=== PATIENT | female | born 1935 | race Caucasian/White ===

== ENCOUNTER 2017-11-24 03:58 | Observation (INO) | payer OTHER ==
[2017-11-24 04:09] VITALS: BMI 29.2
--- NOTE | 2017-11-24 05:28 | PDOC ---
History of Present Illness - History of Present Illness Initial Comments: 11/24/17 05:59 The patient is a 82 year old female, with a significant past medical history of hyperlipidemia, hypertension, diabetes, who presents to the emergency department with dizziness this morning. The patient states she woke up feeling dizzy and woke her daughter. Secondarily, she reports having neck pain on the left. She denies LOC or falls. She denies chest pain, shortness of breath, headache. She denies fever, chills, nausea, vomit, diarrhea and constipation. She denies dysuria, frequency, urgency and hematuria. Allergies: NKDA PCP: Dr. Shukla? <Renay Aguilar - Last Filed: 11/24/17 05:59> <Jossie Wilhelm - Last Filed: 11/29/17 20:50> - General Chief Complaint: Blood Pressure Problem Stated Complaint: HYPERTENSIVE CRISIS Time Seen by Provider: 11/24/17 04:51 Past History <Renay Aguilar - Last Filed: 11/24/17 05:59> - Past Medical History COPD: No Diabetes: Yes (2) HTN: Yes Hypercholesterolemia: Yes - Suicide/Smoking/Psychosocial Hx Smoking History: Never smoked Have you smoked in the past 12 months: No Information on smoking cessation initiated: No Hx Alcohol Use: No Drug/Substance Use Hx: No <Josise Wilhelm - Last Filed: 11/29/17 20:50> - Past Medical History Allergies/Adverse Reactions: Allergies Allergy/AdvReac Type Severity Reaction Status Date / Time No Known Allergies Allergy Verified 11/24/17 04:54 Home Medications: Ambulatory Orders Amlodipine Besylate [Norvasc -] 10 mg PO DAILY 11/24/17 Aspirin 81 mg PO DAILY 11/24/17 Furosemide [Lasix -] 20 mg PO BID 11/24/17 Losartan Potassium 100 mg PO DAILY 11/24/17 Memantine HCl [Namenda -] 10 mg PO BID 11/24/17 Sitagliptin Phosphate [Januvia] 100 mg PO DAILY 11/24/17 Review of Systems - Review of Systems Able to Perform ROS?: Yes Comments:: 11/24/17 06:02 GENERAL/CONSTITUTIONAL: No fever or chills. No weakness. HEAD, EYES, EARS, NOSE AND THROAT: No change in vision. No ear pain or discharge. No sore throat. CARDIOVASCULAR: No chest pain or shortness of breath. RESPIRATORY: No cough, wheezing, or hemoptysis. GASTROINTESTINAL: No nausea, vomiting, diarrhea or constipation. GENITOURINARY: No dysuria, frequency, or change in urination. MUSCULOSKELETAL: (+) neck pain. No joint or muscle swelling. No back pain. SKIN: No rash NEUROLOGIC: (+) dizziness. No headache, loss of consciousness, or change in strength/sensation. ENDOCRINE: No increased thirst. No abnormal weight change. HEMATOLOGIC/LYMPHATIC: No anemia, easy bleeding, or history of blood clots. ALLERGIC/IMMUNOLOGIC: No hives or skin allergy. <Renay Aguilar - Last Filed: 11/24/17 05:59> *Physical Exam - Vital Signs Last Vital Signs Temp Pulse Resp BP Pulse Ox 97.1 F L 109 H 18 168/74 96 11/24/17 04:07 11/24/17 04:07 11/24/17 04:07 11/24/17 04:07 11/24/17 04:07 - Physical Exam Comments: 11/24/17 06:03 GENERAL: Awake, alert, and fully oriented, in no acute distress HEAD: No signs of trauma EYES: PERRLA, EOMI, sclera anicteric, conjunctiva clear ENT: Auricles normal inspection, hearing grossly normal, nares patent, oropharynx clear without exudates. Moist mucosa NECK: Normal ROM, supple, no lymphadenopathy, JVD, or masses LUNGS: Breath sounds equal, clear to auscultation bilaterally. No wheezes, and no crackles HEART: (+) tachycardic rate and normal rhythm, normal S1 and S2, no murmurs, rubs or gallops ABDOMEN: Soft, nontender, normoactive bowel sounds. No guarding, no rebound. No masses EXTREMITIES: Normal range of motion, no edema. No clubbing or cyanosis. No cords, erythema, or tenderness NEUROLOGICAL: Cranial nerves II through XII grossly intact. Normal speech, normal gait SKIN: (+) Warm to touch, Dry, normal turgor, no rashes or lesions noted. <Renay Aguilar - Last Filed: 11/24/17 05:59> - Vital Signs Last Vital Signs Temp Pulse Resp BP Pulse Ox 97.1 F L 109 H 18 168/74 96 11/24/17 04:07 11/24/17 04:07 11/24/17 04:07 11/24/17 04:07 11/24/17 04:07 <Jossie Wilhelm - Last Filed: 11/29/17 20:50> ED Treatment Course - LABORATORY CBC & Chemistry Diagram: 11/24/17 06:00 11/24/17 06:00 <Jossie Wilhelm - Last Filed: 11/29/17 20:50> Medical Decision Making - Medical Decision Making 11/24/17 06:38 Pt comes with elevated BP and dizziness complaint. No headache and no body aches and no fever or chills. She has slight neck pain, but she is neurologicaly intact and she is moving about easily. 11/24/17 06:41 Pt was given a dose of metorpolol 5mg IVPB in the ER, as she is tachycardic and HTN. 11/24/17 06:42 Pt has CXR and CT head and labs pending. Pt will be signed out to the day ER docs. 11/24/17 07:00 Patient Name: LALITA PATE THIS IS A PRELIMINARY REPORT FROM [facility] AUTHORIZATION NURSE DATE OF SERVICE: 2017-11-24 06:17:40 IMAGES: [id number] EXAM: CT HEAD without contrast HISTORY: Dizziness and hypertension COMPARISON: None. FINDINGS: The ventricular system is midline and nondilated. There is mild cortical atrophy and small vessel ischemic disease. There is no bleed, mass, extra-axial fluid collection or mass effect. No skull fracture or skull lesion is identified. The visualized paranasal sinuses and mastoid air cells are clear. IMPRESSION: No acute pathology. 11/29/17 20:50 Pt admitted for dizziness and uncontrolled BP <Jossie Wilhelm - Last Filed: 11/29/17 20:50> *DC/Admit/Observation/Transfer - Attestations Scribe Attestion: 11/24/17 06:04 Documentation prepared by Renay Aguilar, acting as medical sales associate for Jsosie Wilhelm MD <Renay Aguilar - Last Filed: 11/24/17 05:59> <Jossie Wilhelm - Last Filed: 11/29/17 20:50> Diagnosis at time of Disposition: Ataxia - Discharge Dispostion Disposition: HOME Condition at time of disposition: Fair
[2017-11-24] MEDS ORDERED: METOPROLOL TARTRATE 5 MG/5 ML VIAL IVPUSH ONE (05:49)
[2017-11-24 06:08] LABS: BASO % 0.7 % (0-2.0); EOS % 0.3 % (0-4.5); HEMATOCRIT 40.8 % (32.4-45.2); HEMOGLOBIN 13.3 GM/dL (10.7-15.3); LYMPH % 13.1 % (8-40); MCH 27.4 pg (25.7-33.7); MCHC 32.6 g/dl (32.0-36.0); MEAN CELL VOLUME 83.8 fl (80-96); MEAN PLT VOLUME 10.1 fl (7.5-11.1); NEUT % 81.9 % (42.8-82.8); PLATELET COUNT 204 K/MM3 (134-434); RBC 4.86 M/mm3 (3.60-5.2); RDW 15.4 % (11.6-15.6); WHITE BLOOD COUNT 7.9 K/mm3 (4.0-10.0)
[2017-11-24] MEDS ORDERED: METOPROLOL TARTRATE 5 MG/5 ML VIAL ONE (06:14)
[2017-11-24 06:21] LABS: INR 0.96 (0.82-1.09); PROTHROMBIN TIME (PATIENT) 10.8 SEC (9.98-11.88)
[2017-11-24 06:47] LABS: ANION GAP 11 (8-16); BILIRUBIN,TOTAL 0.2 mg/dL (0.2-1.0); BLOOD UREA NITROGEN 21 mg/dL (7-18); CALCIUM 9.4 mg/dL (8.5-10.1); CHLORIDE 103 mmol/L (98-107); CO2 26 mmol/L (21-32); CREATININE 0.9 mg/dL (0.55-1.02); GLUCOSE,RANDOM 139 mg/dL (74-106); POTASSIUM 4.5 mmol/L (3.5-5.1); SGOT/AST 15 U/L (15-37); SGPT/ALT 17 U/L (12-78); SODIUM 140 mmol/L (136-145); TOT PROT 7.7 g/dl (6.4-8.2)
[2017-11-24 06:49] LABS: ALK PHOS 68 U/L (45-117)
--- NOTE | 2017-11-24 08:28 | PDOC ---
*Physical Exam - Vital Signs Last Vital Signs Temp Pulse Resp BP Pulse Ox 98.1 F 98 H 16 147/77 98 11/24/17 06:46 11/24/17 06:46 11/24/17 06:46 11/24/17 06:46 11/24/17 06:46 ED Treatment Course - LABORATORY CBC & Chemistry Diagram: 11/24/17 06:00 11/24/17 06:00 - ADDITIONAL ORDERS Additional order review: Laboratory Results 11/24/17 11/24/17 11/24/17 06:02 06:00 06:00 PT with INR 10.80 INR 0.96 Sodium 140 Potassium 4.5 Chloride 103 Carbon Dioxide 26 Anion Gap 11 BUN 21 H Creatinine 0.9 Creat Clearance w eGFR > 60 POC Glucometer 140.93081 Random Glucose 139 H Calcium 9.4 Total Bilirubin 0.2 AST 15 ALT 17 Alkaline Phosphatase 68 Creatine Kinase 137 Troponin I 0.02 Total Protein 7.7 Albumin 4.0 11/24/17 11/24/17 06:02 06:00 RBC 4.86 MCV 83.8 MCHC 32.6 RDW 15.4 MPV 10.1 Neutrophils % 81.9 Lymphocytes % 13.1 Monocytes % 4.0 Eosinophils % 0.3 Basophils % 0.7 POC Glucometer 140.13166 - Medications Given in the ED: ED Medications Discontinued Medications Generic Name Dose Route Start Last Admin Trade Name Bipinq PRN Reason Stop Dose Admin Metoprolol Tartrate 5 mg 11/24/17 05:49 11/24/17 06:46 Lopressor Injection - IVPUSH 11/24/17 05:50 5 mg ONCE ONE Administration Oxycodone/Acetaminophen 2 combo 11/24/17 05:29 11/24/17 06:13 Percocet 5/325 - PO 11/24/17 05:30 Not Given ONCE ONE Medical Decision Making - Medical Decision Making 11/24/17 08:08 Received signout on this 82-year-old female with history of hypertension who presented with difficulty ambulating since last night. BP managed with IV toprol , pt sxs unchanged. Per pt and daughter, pt keeps falling to her left when walking, this has been ongoing for a few days but worse since last night. Labs and CT head so far unremarkable. Given age and elevated BP, cerebellar pathology is of concern. Discussed with patient, would admit for further imaging and neuro evaluation. PMD at [facility]. 11/24/17 10:05 Accepted for obs stroke by Dr. Garcia, will consult Dr. Delacruz of neurology. *DC/Admit/Observation/Transfer Diagnosis at time of Disposition: Ataxia - Discharge Dispostion Condition at time of disposition: Fair Admit: Yes - Referrals - Patient Instructions - Post Discharge Activity NIH Stroke Scale - Last Known Well Date/Time & Onset Date Last Known Well: 11/22/17 - Initial Evaluation Level of consciousness: Alert Ask patient the month and their age: Answers both correctly Ask patient to open & close eyes; make fist and let go: Obeys both correctly Best gaze (horizontal eye movement): Normal Visual field testing: No visual field loss Facial paresis (Show teeth/raise eyebrows/close eyes tight): Normal symmetrical movement Motor Function: Left Arm: Normal Motor Function: Right Arm: Normal (extends arm 90 (or 45) degrees for 10 seconds without drift Motor Function: Left Leg: Normal (extends leg 30 degrees for 5 seconds without drift) Motor Function: Right Leg: Normal (extends leg 30 degrees for 5 seconds without drift) Limb Ataxia: No ataxia Sensory(Use pinprick test arms,legs,trunk,face/side to side): Normal Best language (Describe picture, name items, read sentences): No Aphasia Dysarthria (read several words): Normal articulation Extinction and Inattention: No abnormality - Total Score NIH Stroke Scale Score: 0 tPA Exclusion checklist 3-4.5h - Ineligibility reason(s) Reasons No tPA given: Outside of window - delayed arrival
--- NOTE | 2017-11-24 12:21 | EKG ---
Test Reason : Blood Pressure : / mmHG Vent. Rate : 100 BPM Atrial Rate : 100 BPM P-R Int : 176 ms QRS Dur : 084 ms QT Int : 352 ms P-R-T Axes : 057 019 061 degrees QTc Int : 454 ms NORMAL SINUS RHYTHM NONSPECIFIC T WAVE ABNORMALITY ABNORMAL ECG NO PREVIOUS ECGS AVAILABLE Confirmed by SELENA MONZON MD ([id number]) on 11/24/2017 12:21:31 PM Referred By: Confirmed By:SELENA MONZON MD
--- NOTE | 2017-11-24 12:54 | HP ---
Admitting History and Physical - Primary Care Physician PCP: Pete Garcia - Admission Chief Complaint: dizzy History of Present Illness: The patient is a 82 year old female, with a significant past medical history of hyperlipidemia, hypertension, diabetes, who presents to the emergency department with dizziness this morning. The patient states she woke up feeling dizzy and woke her daughter. Secondarily, she reports having neck pain on the left. She denies LOC or falls. - Past Medical History Cardiovascular: Yes: HTN, Hyperlipdemia Endocrine: Yes: Diabetes Mellitus - Smoking History Smoking history: Never smoked Have you smoked in the past 12 months: No - Alcohol/Substance Use Hx Alcohol Use: No Home Medications - Allergies Allergies/Adverse Reactions: Allergies Allergy/AdvReac Type Severity Reaction Status Date / Time No Known Allergies Allergy Verified 11/24/17 04:54 - Home Medications Home Medications: Ambulatory Orders Amlodipine Besylate [Norvasc -] 10 mg PO DAILY 11/24/17 Aspirin 81 mg PO DAILY 11/24/17 Furosemide [Lasix -] 20 mg PO BID 11/24/17 Losartan Potassium 100 mg PO DAILY 11/24/17 Memantine HCl [Namenda -] 10 mg PO BID 11/24/17 Sitagliptin Phosphate [Januvia] 100 mg PO DAILY 11/24/17 Physical Examination Vital Signs: Vital Signs Temperature 98.1 F 11/24/17 06:46 Pulse Rate 98 H 11/24/17 06:46 Respiratory Rate 16 11/24/17 06:46 Blood Pressure 147/77 11/24/17 06:46 O2 Sat by Pulse Oximetry (%) 98 11/24/17 06:46 Constitutional: Yes: No Distress HENT: Yes: Atraumatic Neck: Yes: Supple Cardiovascular: Yes: Regular Rate and Rhythm Respiratory: Yes: CTA Bilaterally Gastrointestinal: Yes: Normal Bowel Sounds Extremities: Yes: WNL Edema: No Peripheral Pulses WNL: Yes Neurological: Yes: Alert, Oriented Labs: CBC, BMP 11/24/17 06:00 11/24/17 06:00 Problem List - Problems (1) HTN (hypertension) Assessment/Plan: continue home meds Code(s): I10 - ESSENTIAL (PRIMARY) HYPERTENSION (2) HLD (hyperlipidemia) Assessment/Plan: on meds Code(s): E78.5 - HYPERLIPIDEMIA, UNSPECIFIED (3) Diabetes Assessment/Plan: on oral hypoglycemics check bgms Code(s): E11.9 - TYPE 2 DIABETES MELLITUS WITHOUT COMPLICATIONS (4) Dizziness Assessment/Plan: check bp i think she has benign positional vertigo will give a trial of meclizine Code(s): R42 - DIZZINESS AND GIDDINESS Assessment/Plan Laboratory Tests 11/24/17 11/24/17 11/24/17 06:00 06:00 06:00 WBC 7.9 RBC 4.86 Hgb 13.3 Hct 40.8 MCV 83.8 MCH 27.4 MCHC 32.6 RDW 15.4 Plt Count 204 MPV 10.1 Neutrophils % 81.9 Lymphocytes % 13.1 Monocytes % 4.0 Eosinophils % 0.3 Basophils % 0.7 PT with INR 10.80 INR 0.96 Sodium 140 Potassium 4.5 Chloride 103 Carbon Dioxide 26 Anion Gap 11 BUN 21 H Creatinine 0.9 Creat Clearance w eGFR > 60 POC Glucometer Random Glucose 139 H Calcium 9.4 Total Bilirubin 0.2 AST 15 ALT 17 Alkaline Phosphatase 68 Creatine Kinase 137 Troponin I 0.02 Total Protein 7.7 Albumin 4.0 11/24/17 06:02 WBC RBC Hgb Hct MCV MCH MCHC RDW Plt Count MPV Neutrophils % Lymphocytes % Monocytes % Eosinophils % Basophils % PT with INR INR Sodium Potassium Chloride Carbon Dioxide Anion Gap BUN Creatinine Creat Clearance w eGFR POC Glucometer 140.03151 Random Glucose Calcium Total Bilirubin AST ALT Alkaline Phosphatase Creatine Kinase Troponin I Total Protein Albumin Active Medications Generic Name Dose Route Start Last Admin Trade Name Bipinq PRN Reason Stop Dose Admin Acetaminophen 650 mg 11/24/17 21:56 11/24/17 22:04 Tylenol - PO 650 mg Q6H PRN Administration FEVER OR PAIN Amlodipine Besylate 10 mg 11/25/17 10:00 11/25/17 10:13 Norvasc - PO 10 mg DAILY GIANCARLO Administration Aspirin 81 mg 11/25/17 10:00 11/25/17 10:13 Asa - PO 81 mg DAILY GIANCARLO Administration Furosemide 20 mg 11/25/17 06:00 11/25/17 14:07 Lasix - PO 20 mg BIDLASIX GIANCARLO Administration Losartan Potassium 100 mg 11/25/17 10:00 11/25/17 10:13 Losartan Potassium PO 100 mg DAILY GIANCARLO Administration Memantine 10 mg 11/24/17 22:00 11/25/17 10:13 Namenda - PO 10 mg BID GIANCARLO Administration Sitagliptin Phosphate 100 mg 11/25/17 07:00 11/25/17 08:15 Januvia - PO 100 mg DAILY@0700 GIANCARLO Administration
--- NOTE | 2017-11-24 15:28 | CON.CARD ---
Consult Consult Specialty:: Cardiology Referred by:: ER Reason for Consultation:: dizziness htn - History of Present Illness Chief Complaint: dizziness History of Present Illness: She is an 82 year old female history of hyperlipidemia, hypertension, diabetes, who presents with dizziness since this morning. The patient states she woke up feeling dizzy and woke her daughter. Secondarily, she reports having neck pain on the left. She denies LOC or falls. No palpitations, LOC, chest pain or headache. Her dizziness is described as lightheadedness without room spinning. - History Source History Provided By: Patient, Medical Record Limitations to Obtaining History: No Limitations - Alcohol/Substance Use Hx Alcohol Use: No - Smoking History Smoking history: Never smoked Have you smoked in the past 12 months: No Home Medications - Allergies Allergies/Adverse Reactions: Allergies Allergy/AdvReac Type Severity Reaction Status Date / Time No Known Allergies Allergy Verified 11/24/17 04:54 - Home Medications Home Medications: Ambulatory Orders Unobtainable [Unobtainable] 11/24/17 Vital Signs: Vital Signs Temperature 98.1 F 11/24/17 06:46 Pulse Rate 97 H 11/24/17 13:00 Respiratory Rate 20 11/24/17 13:00 Blood Pressure 148/76 11/24/17 13:00 O2 Sat by Pulse Oximetry (%) 97 11/24/17 13:00 Constitutional: Yes: Well Nourished, No Distress Eyes: Yes: Conjunctiva Clear, EOM Intact HENT: Yes: Atraumatic, Normocephalic Neck: Yes: Supple, Trachea Midline Respiratory: Yes: Regular, CTA Bilaterally Gastrointestinal: Yes: Normal Bowel Sounds, Soft Cardiovascular: Yes: Regular Rate and Rhythm JVD: No Carotid Bruit: No PMI: Non-Displaced Heart Sounds: Yes: S1, S2 Edema: No Peripheral Pulses WNL: Yes - Other Data Labs, Other Data: CBC, BMP 11/24/17 06:00 11/24/17 06:00 INR, PTT INR 0.96 (0.82-1.09) 11/24/17 06:00 Troponin, BNP 11/24/17 06:00 Troponin I 0.02 Troponin, BNP 11/24/17 06:00 Troponin I 0.02 Imaging - Results Cat Scan: Report Reviewed (no gross abnormalities) EKG: Report Reviewed (nsr nssttw changes.) Problem List - Problems (1) Dizziness Assessment/Plan: She is nonpostural, and I do not believe that her dizziness is due to cardiac cause at this time. Would consider neurologic evaluation given her diabetes, and MRI. Echo ordered. Continue home BP medications. Code(s): R42 - DIZZINESS AND GIDDINESS
[2017-11-24] MEDS ORDERED: amLODIPine BESYLATE 5 MG TABLET (FP) PO SCH (18:00)
[2017-11-24] MEDS ORDERED: amLODIPine BESYLATE 5 MG TABLET (FP) ONE ×2 (18:29→18:32)
[2017-11-24] MEDS ORDERED: ACETAMINOPHEN 325 MG TABLET (FP) PO PRN (21:56)
[2017-11-24] MEDS ORDERED: MECLIZINE HCL 25 MG TABLET (FP) PO PRN (21:56)
[2017-11-24] MEDS: MEMANTINE HCL 10 MG TABLET (FP) PO SCH (22:29)
[2017-11-25] MEDS ORDERED: FUROSEMIDE 40 MG TABLET (FP) ONE (08:10)
[2017-11-25] MEDS ORDERED: sitaGLIPtin PHOSPHATE 50 MG TABLET ONE (08:10)
[2017-11-25] MEDS: sitaGLIPtin PHOSPHATE 100 MG TABLET (FP) PO SCH (08:15)
[2017-11-25] MEDS: FUROSEMIDE 20 MG TABLET (FP) PO SCH ×2 (08:15→14:07)
[2017-11-25] MEDS: MEMANTINE HCL 10 MG TABLET (FP) PO SCH ×2 (10:13→21:15)
[2017-11-25] MEDS: amLODIPine BESYLATE 10 MG TABLET (FP) PO SCH (10:13)
[2017-11-25] MEDS: LOSARTAN POTASSIUM 100 MG TABLET PO SCH (10:13)
[2017-11-25] MEDS: ASPIRIN 81 MG CHEWABLE TABLETS PO SCH (10:13)
--- NOTE | 2017-11-25 12:20 | PN ---
Progress Note, Physician Chief Complaint: less dizzy History of Present Illness: She is an 82 year old female history of hyperlipidemia, hypertension, diabetes, who presents with dizziness since this morning. The patient states she woke up feeling dizzy and woke her daughter. Secondarily, she reports having neck pain on the left. She denies LOC or falls. No palpitations, LOC, chest pain or headache. Her dizziness is described as lightheadedness without room spinning. - Current Medication List Current Medications: Active Medications Acetaminophen (Tylenol -) 650 mg PO Q6H PRN PRN Reason: FEVER OR PAIN Last Admin: 11/24/17 22:04 Dose: 650 mg Amlodipine Besylate (Norvasc -) 10 mg PO DAILY [facility] Last Admin: 11/25/17 10:13 Dose: 10 mg Aspirin (Asa -) 81 mg PO DAILY [facility] Last Admin: 11/25/17 10:13 Dose: 81 mg Furosemide (Lasix -) 20 mg PO BIDLASIX [facility] Last Admin: 11/25/17 08:15 Dose: 20 mg Losartan Potassium (Losartan Potassium) 100 mg PO DAILY [facility] Last Admin: 11/25/17 10:13 Dose: 100 mg Meclizine HCl (Antivert -) 25 mg PO Q6H PRN PRN Reason: vertigo Last Admin: 11/24/17 22:04 Dose: 25 mg Memantine (Namenda -) 10 mg PO BID [facility] Last Admin: 11/25/17 10:13 Dose: 10 mg Sitagliptin Phosphate (Januvia -) 100 mg PO DAILY@0700 [facility] Last Admin: 11/25/17 08:15 Dose: 100 mg - Objective Vital Signs: Vital Signs Temperature 98 F 11/25/17 10:14 Pulse Rate 65 11/25/17 10:14 Respiratory Rate 18 11/25/17 10:14 Blood Pressure 152/69 11/25/17 10:14 O2 Sat by Pulse Oximetry (%) 98 11/25/17 10:14 Constitutional: Yes: No Distress, Calm Eyes: Yes: Conjunctiva Clear, EOM Intact HENT: Yes: Normocephalic Neck: Yes: Supple, Trachea Midline Cardiovascular: Yes: Regular Rate and Rhythm Respiratory: Yes: Regular, CTA Bilaterally Musculoskeletal: Yes: WNL Extremities: Yes: WNL Edema: No Peripheral Pulses WNL: Yes Labs: CBC, BMP 11/24/17 06:00 01/08/18 06:00 INR, PTT INR 0.96 (0.82-1.09) 11/24/17 06:00 Problem List - Problems (1) Dizziness Assessment/Plan: She is nonpostural, and I do not believe that her dizziness is due to cardiac cause at this time. Would consider neurologic evaluation given her diabetes, and MRI. Echo ordered. Continue home BP medications. Code(s): R42 - DIZZINESS AND GIDDINESS
--- NOTE | 2017-11-25 14:42 | EKG ---
Test Reason : Blood Pressure : / mmHG Vent. Rate : 059 BPM Atrial Rate : 059 BPM P-R Int : 150 ms QRS Dur : 086 ms QT Int : 448 ms P-R-T Axes : 030 004 090 degrees QTc Int : 443 ms SINUS BRADYCARDIA T WAVE ABNORMALITY, CONSIDER ANTEROLATERAL ISCHEMIA ABNORMAL ECG WHEN COMPARED WITH ECG OF 24-NOV-2017 17:09, NO SIGNIFICANT CHANGE WAS FOUND Confirmed by Jae Ashby MD ([id number]) on 11/25/2017 2:41:43 PM Referred By: Elke ELMORE Confirmed By:Jae Ashby MD
[2017-11-25 18:24] LABS: URINE APPEARANCE CLEAR; URINE BILIRUBIN NEGATIVE (NEGATIVE); URINE BLOOD NEGATIVE (NEGATIVE); URINE COLOR STRAW; URINE GLUCOSE (UA) NEGATIVE (NEGATIVE); URINE KETONE NEGATIVE (NEGATIVE); URINE LEUK ESTERASE NEGATIVE (NEGATIVE); URINE NITRITE NEGATIVE (NEGATIVE); URINE PROTEIN NEGATIVE (NEGATIVE); URINE UROBILINOGEN NEGATIVE mg/dL (0.2-1.0)
--- NOTE | 2017-11-25 19:27 | PN ---
Progress Note, Physician History of Present Illness: feeling good - Current Medication List Current Medications: Active Medications Acetaminophen (Tylenol -) 650 mg PO Q6H PRN PRN Reason: FEVER OR PAIN Last Admin: 11/24/17 22:04 Dose: 650 mg Amlodipine Besylate (Norvasc -) 10 mg PO DAILY [facility] Last Admin: 11/25/17 10:13 Dose: 10 mg Aspirin (Asa -) 81 mg PO DAILY [facility] Last Admin: 11/25/17 10:13 Dose: 81 mg Furosemide (Lasix -) 20 mg PO BIDLASIX [facility] Last Admin: 11/25/17 14:07 Dose: 20 mg Losartan Potassium (Losartan Potassium) 100 mg PO DAILY [facility] Last Admin: 11/25/17 10:13 Dose: 100 mg Memantine (Namenda -) 10 mg PO BID [facility] Last Admin: 11/25/17 10:13 Dose: 10 mg Sitagliptin Phosphate (Januvia -) 100 mg PO DAILY@0700 [facility] Last Admin: 11/25/17 08:15 Dose: 100 mg - Objective Vital Signs: Vital Signs Temperature 98.9 F 11/25/17 18:00 Pulse Rate 77 11/25/17 18:26 Respiratory Rate 18 11/25/17 18:00 Blood Pressure 141/65 11/25/17 18:26 O2 Sat by Pulse Oximetry (%) 98 11/25/17 17:00 Constitutional: Yes: No Distress HENT: Yes: Atraumatic Neck: Yes: Supple Cardiovascular: Yes: Regular Rate and Rhythm Respiratory: Yes: CTA Bilaterally Gastrointestinal: Yes: Normal Bowel Sounds Extremities: Yes: WNL Neurological: Yes: Alert, Oriented Labs: CBC, BMP 11/24/17 06:00 11/24/17 06:00 INR, PTT INR 0.96 (0.82-1.09) 11/24/17 06:00 Problem List - Problems (1) HTN (hypertension) Assessment/Plan: continue home meds Code(s): I10 - ESSENTIAL (PRIMARY) HYPERTENSION (2) HLD (hyperlipidemia) Assessment/Plan: on meds Code(s): E78.5 - HYPERLIPIDEMIA, UNSPECIFIED (3) Diabetes Assessment/Plan: on oral hypoglycemics check bgms Code(s): E11.9 - TYPE 2 DIABETES MELLITUS WITHOUT COMPLICATIONS (4) Dizziness Assessment/Plan: better today bp stable Code(s): R42 - DIZZINESS AND GIDDINESS
[2017-11-25] MEDS ORDERED: MECLIZINE HCL 25 MG TABLET (FP) PO PRN (19:31)
[2017-11-26] MEDS: sitaGLIPtin PHOSPHATE 100 MG TABLET (FP) PO SCH (06:14)
[2017-11-26] MEDS: FUROSEMIDE 20 MG TABLET (FP) PO SCH ×2 (06:14→14:02)
[2017-11-26] MEDS: LOSARTAN POTASSIUM 100 MG TABLET PO SCH (09:50)
[2017-11-26] MEDS: ASPIRIN 81 MG CHEWABLE TABLETS PO SCH (09:50)
[2017-11-26] MEDS: MEMANTINE HCL 10 MG TABLET (FP) PO SCH (09:50)
[2017-11-26] MEDS: amLODIPine BESYLATE 10 MG TABLET (FP) PO SCH (09:50)
[2017-11-26 13:54] VITALS: BP 120/65; PULSE 68; TEMP 98.1
--- NOTE | 2017-11-26 17:22 | PN ---
Progress Note, Physician History of Present Illness: feeling good - Current Medication List Current Medications: Active Medications Acetaminophen (Tylenol -) 650 mg PO Q6H PRN PRN Reason: FEVER OR PAIN Last Admin: 11/24/17 22:04 Dose: 650 mg Amlodipine Besylate (Norvasc -) 10 mg PO DAILY [facility] Last Admin: 11/26/17 09:50 Dose: 10 mg Aspirin (Asa -) 81 mg PO DAILY [facility] Last Admin: 11/26/17 09:50 Dose: 81 mg Furosemide (Lasix -) 20 mg PO BIDLASIX [facility] Last Admin: 11/26/17 14:02 Dose: 20 mg Losartan Potassium (Losartan Potassium) 100 mg PO DAILY [facility] Last Admin: 11/26/17 09:50 Dose: 100 mg Memantine (Namenda -) 10 mg PO BID [facility] Last Admin: 11/26/17 09:50 Dose: 10 mg Sitagliptin Phosphate (Januvia -) 100 mg PO DAILY@0700 [facility] Last Admin: 11/26/17 06:14 Dose: 100 mg - Objective Vital Signs: Vital Signs Temperature 98.1 F 11/26/17 13:00 Pulse Rate 68 11/26/17 13:00 Respiratory Rate 18 11/26/17 13:00 Blood Pressure 120/65 11/26/17 13:00 O2 Sat by Pulse Oximetry (%) 93 L 11/26/17 09:00 Constitutional: Yes: No Distress HENT: Yes: Atraumatic Neck: Yes: Supple Cardiovascular: Yes: Regular Rate and Rhythm Respiratory: Yes: CTA Bilaterally Gastrointestinal: Yes: Normal Bowel Sounds Extremities: Yes: WNL Neurological: Yes: Alert, Oriented Labs: CBC, BMP 11/24/17 06:00 11/24/17 06:00 INR, PTT INR 0.96 (0.82-1.09) 11/24/17 06:00 Problem List - Problems (1) HTN (hypertension) Assessment/Plan: continue home meds Code(s): I10 - ESSENTIAL (PRIMARY) HYPERTENSION (2) HLD (hyperlipidemia) Assessment/Plan: on meds Code(s): E78.5 - HYPERLIPIDEMIA, UNSPECIFIED (3) Diabetes Assessment/Plan: on oral hypoglycemics check bgms Code(s): E11.9 - TYPE 2 DIABETES MELLITUS WITHOUT COMPLICATIONS (4) Dizziness Code(s): R42 - DIZZINESS AND GIDDINESS Assessment/Plan d/w with neuro, can be dc home
--- NOTE | 2017-11-26 17:58 | DS ---
Physical Examination Vital Signs: Vital Signs Temperature 98.1 F 11/26/17 13:00 Pulse Rate 68 11/26/17 13:00 Respiratory Rate 18 11/26/17 13:00 Blood Pressure 120/65 11/26/17 13:00 O2 Sat by Pulse Oximetry (%) 93 L 11/26/17 09:00 Labs: CBC, BMP 11/24/17 06:00 11/24/17 06:00 Discharge Summary Reason For Visit: ATAXIA Current Active Problems Ataxia (Acute) Diabetes (Acute) Dizziness (Acute) HLD (hyperlipidemia) (Acute) HTN (hypertension) (Acute) Condition: Fair - Instructions Diet, Activity, Other Instructions: see your pmd/neuro 1-2 weeks Referrals: Leonard Delacruz MD [Staff Physician] - - Home Medications Comprehensive Discharge Medication List: Ambulatory Orders Amlodipine Besylate [Norvasc -] 10 mg PO DAILY 11/24/17 Aspirin 81 mg PO DAILY 11/24/17 Furosemide [Lasix -] 20 mg PO BID 11/24/17 Losartan Potassium 100 mg PO DAILY 11/24/17 Memantine HCl [Namenda -] 10 mg PO BID 11/24/17 Sitagliptin Phosphate [Januvia] 100 mg PO DAILY 11/24/17 ok home
--- NOTE | 2017-11-26 18:08 | CONSULT ---
Consult - text type - Consultation Consultation Note: NEUROLOGY CONSULTATION is greatly appreciated: Events and CT scan reviewed. Patient examined. Discussed with Dr. Garcia. This 82 yo woman lives alone. PMH sig for HTN, Chol and Dm. Maintained of losartan, norvasc, lasix, Januvia, ASA and namenda 10 BID. Admitted after c/o dizziness and calling daughter. Was unsteady but did not fall. CT of head (reviewed) normal for age. Carotid duplex doppler: Minimal intimal thickening. court monitor in the ED > 24 hrs was unremarkable. Now feels "normal" and wants to go home. EXAM: Cor reg. No bruits. NEURO: Awake alert. Fluent in Portuguese. CN II-XII: Normal without bruits. Motor: No drift, tremor or cogwheeling. Normal reflexes except absent AJ's. Toes downgoing. No FTN Dystaxia Sensory: Decreased vib in feet. Romberg +/- Gait: Sl wide-based and shuffling. IMP: Non-focal exam Mild diabetic peripheral neuropathy. Doubt CVA (or TIA) or labyrinthitis. Would consider transient hypotension (admitting BP was 102 systolic) or hypoglycemia. SUGGEST: Agree completely with current management. Follow orthostatic BP's. Check B12, TSH, RPR. Namenda is not indicated for monotherapy in mild OMS. Would D/C in favor of a cental cholinesterase inhibitor. Neuro f/u as out patient. Thank you very much, Leonard Delacruz MD
--- NOTE | 2017-12-02 10:53 | EKG ---
Test Reason : Blood Pressure : / mmHG Vent. Rate : 067 BPM Atrial Rate : 067 BPM P-R Int : 148 ms QRS Dur : 082 ms QT Int : 410 ms P-R-T Axes : 049 014 110 degrees QTc Int : 433 ms NORMAL SINUS RHYTHM T WAVE ABNORMALITY, CONSIDER LATERAL ISCHEMIA ABNORMAL ECG WHEN COMPARED WITH ECG OF 24-NOV-2017 05:35, VENT. RATE HAS DECREASED BY 33 BPM NONSPECIFIC T WAVE ABNORMALITY, WORSE IN ANTERIOR LEADS Confirmed by MD Moi, Rodrigo ([id number]) on 12/02/2017 10:53:13 AM Referred By: Confirmed By:Rodrigo Prater MD
== END 2017-11-26 18:41 | disposition home or self-care (01) ==
LOC: JER 03:58 → JERBED 10:06 → J5S 11-25 17:13
PROVIDERS: ADMIT Internal Medicine; ATTEND Internal Medicine
PROC: 3E033GC Introduction of Other Therapeutic Substance into Peripheral Vein, Percutaneous Approach (ICD-10-PCS; principal; 2017-11-24)
DX: R27.0 Ataxia, unspecified (principal); R42 Dizziness and giddiness; I10 Essential (primary) hypertension; E78.5 Hyperlipidemia, unspecified; E11.40 Type 2 diabetes mellitus with diabetic neuropathy, unspecified; Z79.82 Long term (current) use of aspirin
CPT/HCPCS: 36415; 70450-TC; 71046-TC; 80053; 81003; 82550; 82553; 82962; 84484; 85025; 85610; 87086; 93005; 93010; 93306-TC; 93880-TC; 96374; 99285-25; G0378

== ENCOUNTER 2017-12-12 10:50 | Emergency (ER) | payer OTHER ==
[2017-12-12 13:12] VITALS: TEMP 98.4; BMI 31.7
--- NOTE | 2017-12-12 15:22 | PDOC ---
History of Present Illness - General Chief Complaint: Lightheaded Stated Complaint: ANXIETY Time Seen by Provider: 12/12/17 15:07 History Source: Patient, Family - History of Present Illness Timing/Duration: other Associated Symptoms: denies: chest pain, cough, fever/chills, headaches, malaise , nausea/vomiting, seizure, shortness of breath, syncope, weakness Past History - Past Medical History Allergies/Adverse Reactions: Allergies Allergy/AdvReac Type Severity Reaction Status Date / Time No Known Allergies Allergy Verified 12/12/17 16:30 Home Medications: Ambulatory Orders Amlodipine Besylate [Norvasc -] 10 mg PO DAILY 11/24/17 Aspirin 81 mg PO DAILY 11/24/17 Furosemide [Lasix -] 20 mg PO BID 11/24/17 Losartan Potassium 100 mg PO DAILY 11/24/17 Memantine HCl [Namenda -] 10 mg PO BID 11/24/17 Sitagliptin Phosphate [Januvia] 100 mg PO DAILY 11/24/17 COPD: No Diabetes: Yes (2) HTN: Yes Hypercholesterolemia: Yes - Suicide/Smoking/Psychosocial Hx Smoking History: Never smoked Have you smoked in the past 12 months: No Hx Alcohol Use: No Drug/Substance Use Hx: No Review of Systems - Review of Systems Constitutional: No: Fever HEENTM: No: Ear Pain Respiratory: No: Cough, Shortness of Breath Cardiac (ROS): Yes: Lightheadedness. No: Chest Pain, Palpitations, Syncope ABD/GI: No: Diarrhea, Nausea, Vomiting, Abdominal cramping : No: Dysuria *Physical Exam - Vital Signs Last Vital Signs Temp Pulse Resp BP Pulse Ox 98.4 F 93 H 16 153/72 98 12/12/17 13:09 12/12/17 13:09 12/12/17 13:09 12/12/17 13:09 12/12/17 13:09 - Physical Exam General Appearance: Yes: Appropriately Dressed. No: Apparent Distress HEENT: positive: Normal Voice Neck: positive: Supple Respiratory/Chest: positive: Lungs Clear, Normal Breath Sounds. negative: Respiratory Distress Cardiovascular: positive: Regular Rate, S1, S2 Gastrointestinal/Abdominal: positive: Soft. negative: Tender Extremity: positive: Normal Inspection Integumentary: positive: Dry, Warm Neurologic: positive: Fully Oriented, Alert, Normal Mood/Affect, Motor Strength 5/5, Finger to Nose (no nystagmus, Geovanny intact, no drift, no ataxia). negative : Facial Droop, Confused, Disoriented Medical Decision Making - Medical Decision Making 12/12/17 15:22 82-year-old female, history of hyperlipidemia, hypertension, diabetes, status post recent admission for dizziness with negative workup including carotid dopplers, seen by neuro whose impression was possibly transient hypotension. Patient returns today w/ her daughter because as per family, patient continues to have lightheadedness mostly when going from a supine to a standing position. Daughter also concerned that dizziness might be due to patient's medications. States patient uses pillbox but sometimes takes her p.m. meds in the a.m. Patient resides alone with home decorator with help from family. Patient denies any vertigo, headache, visual changes, nausea, vomiting, focal weakness, chest pain or shortness of breath. Has not yet followed up with neuro See exam Recurrent dizziness Status post recent admission for same with negative workup, possible transient hypotension per neurology Pt asx and stable w/ unremarkable exam and able to ambulate to bathroom without dizziness As per Dr Perkins, will check orthostatics and if not orthostatic and remains stable , can be discharged to follow-up with neurology 12/12/17 16:32 Not orthostatic per vitals. Remained stable and well-appearing and asymptomatic at this time. As discussed with ED attending, will discharge patient to follow-up with neurology. I also had discussion with family per medication concern. As per daughter, will intervene and make sure patient take her appropriate meds at the appropriate time. Pt also instructed to not stand up too quickly, to go from a supine to a sitting and ultimately to a standing position and doing that very slowly. Will also have patient follow-up with neurology. Reasons to return discussed with patient and family 12/12/17 16:34 *DC/Admit/Observation/Transfer Diagnosis at time of Disposition: Dizziness - Discharge Dispostion Disposition: HOME Condition at time of disposition: Improved - Referrals - Patient Instructions Additional Instructions: Please follow-up with Dr. Delacruz of neurology. If symptoms worsen, return to ED immediately. As discussed, family will make sure patient take her correct medications and correct doses at the correct times. As also discussed, patient should sit and stand up slowly to try and prevent dizziness - Post Discharge Activity
[2017-12-12 16:35] VITALS: BP 139/81; PULSE 84
== END 2017-12-12 16:37 | disposition home or self-care (01) ==
LOC: JER 10:50
DX: R42 Dizziness and giddiness (principal); E78.5 Hyperlipidemia, unspecified; I10 Essential (primary) hypertension; E11.9 Type 2 diabetes mellitus without complications
CPT/HCPCS: 99282-25